=== PATIENT | male | born 1965 | race Caucasian/White ===

== ENCOUNTER 2021-11-27 15:33 | Outpatient (REF) | payer MEDICAID, SELFPAY ==
[2021-11-27 22:01] LABS: ALT 23 U/L (16-63); AST 19 U/L (15-37); Albumin 4.4 g/dL (3.4-5.0); Alkaline Phosphatase 93 U/L (46-116); Anion Gap 9.2 mmol/L (3-11); BUN 8 mg/dL (7-18); Bilirubin, Total 0.4 mg/dL (0.2-1.0); CO2 29.8 mmol/L (21.0-32.0); CREATININE 0.8 mg/dL (0.70-1.30); Calcium 9.4 mg/dL (8.5-10.1); Calculated LDL 194 mg/dL (<100); Chloride 101 mmol/L (98-107); Cholesterol 305 mg/dL (<200); Glucose 83 mg/dL (74-106); HDL Cholesterol 87 mg/dL (40-60); Potassium 4.6 mmol/L (3.5-5.1); Sodium 140 mmol/L (136-145); TSH 1.38 uIU/mL (0.36-3.74); Total Protein 7.6 g/dL (6.4-8.2); Triglyceride 121 mg/dL (<150)
== END 2021-11-27 15:34 | disposition home or self-care (01) ==
LOC: NCHCN 15:33
PROVIDERS: Visit Provider Registered Nurse
DX: E04.9 Nontoxic goiter, unspecified (principal); F10.10 Alcohol abuse, uncomplicated; Z13.220 Encounter for screening for lipoid disorders; Z00.00 Encounter for general adult medical examination without abnormal findings
CPT/HCPCS: 80053; 80061; 84443